=== PATIENT | male | born 1960 | race African-American/Black ===

== ENCOUNTER 2017-04-04 12:25 | Emergency (ER) | payer BC, OTHER ==
[~2017-04-04] VITALS: Ht 185.4 cm; Wt 90.7 kg
[2017-04-04] MEDS ORDERED: PROTONIX40 M1 PO (12:29)
[2017-04-04] MEDS ORDERED: NORFLEX100 MG PO (14:35)
[2017-04-04] MEDS ORDERED: IBUPROFEN 800800 M1 PO (14:35)
[2017-04-04 15:05] VITALS: BP 116/74
== END 2017-04-04 14:36 | disposition home or self-care (01) ==
LOC: ER 12:25
DX: S16.1XXA Strain of muscle, fascia and tendon at neck level, initial encounter (principal); S29.012A Strain of muscle and tendon of back wall of thorax, initial encounter; V89.2XXA Person injured in unspecified motor-vehicle accident, traffic, initial encounter; Y93.I9 Activity, other involving external motion; Y92.415 Exit ramp or entrance ramp of street or highway as the place of occurrence of the external cause; Y99.8 Other external cause status